=== PATIENT | female | born 1940 | race Caucasian/White ===

== ENCOUNTER 2022-10-03 07:53 | Outpatient (AMB) | payer MEDICARE, SELFPAY ==
--- NOTE | 2022-10-03 07:57 | MHC.OFFVIS ---
Intake Vital Signs 10/03/22 07:59 Height 4 ft 11 in Weight 136 lb BMI 27.5 BP 110/70 Blood Pressure Location Rt brachial Position Sitting Pulse 83 Pulse Source Pulse Oximeter Pulse Oximetry (%) 97 Oxygen Delivery Method Room Air Intake Visit Reasons: NPV-Memory Impairment Intake Note: NPV for memory impairement accompanied by daughter Systems Program Manager Required: No Allergies Penicillins Allergy (Unknown, Verified 10/03/22 07:58) Unknown Medication List - Last Reconciled 10/03/22 by Padma Fonseca MD amlodipine 2.5 mg PO DAILY baclofen 10 mg PO BEDTIME loratadine 10 mg PO DAILY metoprolol succinate ER 50 mg PO DAILY HPI HPI Comments History of Present Illness Details 82y/o right handed female comes for evaluation of memory issues. she is accompanied by her daughter who helps.Her family started noticing some short term memory issues which has worsened in the past 1 month.3 weeks ago while she was doing dishes she was suddenly confused of where she was . The episode lasted 2 hrs. she also ahs trouble with names , phone numbers, repeats often, forgets conversations etc. she lives alone but her children live in the same building. she does not drive, manages her finances. No hallucinations Since her partner passed 4 years ago she has trouble falling asleep. she has snoring and has excessive daytime sleepiness. she has mild depression and anxiety. [facility] Medical History (Updated 10/03/22 @ 08:35 by Padma Fonseca MD) Cervical spondylosis Cholelithiases Cognitive disorder Depression GERD (gastroesophageal reflux disease) HTN (hypertension) Hyperlipidemia Hypersomnia Rheumatoid arthritis Snoring Surgical History H/O thyroidectomy Family History Mother Arthritis Macular infarction Father Arthritis Family/Other No problems noted. Family/Other No problems noted. Social History Alcohol intake: current Patient Tobacco Use Status: Former Tobacco user Review of Systems Const Reports lethargy and Reports snoring Resp Reports snoring Musc Reports arthralgias Neuro Reports memory loss Psych Reports depression and Reports memory loss Physical Exam Vital Signs: Last Vital Signs Pulse 83 10/03/22 07:59 BP 110/70 10/03/22 07:59 Pulse Ox 97 10/03/22 07:59 Oxygen Delivery Method Room Air 10/03/22 07:59 BMI result Body Mass Index 27.5 Const General: cooperative, healthy appearing, comfortable and no acute distress Nutritional Appearance: average body habitus Orientation/consciousness: oriented to person and oriented to place Neuro General: oriented to person, oriented to place, tone normal, moves all extremities and no focal motor deficits Cranial nerves: Yes Facial sensation intact/muscles of mastication intact, Yes Bilaterally intact EOM present, Yes Nystagmus not present, Yes Normal facial strength present, Yes Midline tongue present, Yes Symmetric palate elevation present and Yes Ability to bilaterally elevate shoulders present Cognition (Neuro): abnormal cognition Gait exam (Neuro): Normal gait present Motor exam (neuro): 5/5 motor strength present throughout Deep tendon reflexes (DTR's): Right triceps reflex intensity grade: 1+, Left triceps reflex intensity grade: 1+, Rt Biceps (C5, C6): 1+, Left biceps reflex intensity grade: 1+, Right brachioradialis reflex intensity grade: 1+, Left brachioradialis reflex intensity grade: 1+, Right patellar reflex intensity grade: 1+ and Left patellar reflex intensity grade: 1+ Coordination: [id number] test normal Psych Appearance: grossly normal Orientation What is the (year) (season) (date) (day) (month)?: year, day and month Where are we (state) (county) (town or city) (hospital) (floor)?: state, county, town or city, hospital/clinic and floor Registration Name of 3 unrelated objects clearly and slowly, then ask patient to repeat all 3 of them. (1st repeat determines score. Make sure they can repeat all three): object 1, object 2 and object 3 Attention & Calculation (CHOOSE ONE) Spell WORLD backwards (DLROW): 4 letters Language Show patient a wristwatch & ask what it is. Repeat for pencil.: watch and pencil Ask the patient to repeat the phrase 'No ifs, ands, or buts' after you.: correct Ask the patient to 'take a piece of paper with their right hand' 'fold paper in half' 'place paper on floor': take paper in right hand, fold paper in half and place paper on floor Print the sentence 'CLOSE YOUR EYES' on a piece. If patient actually closes eyes then score.: followed written direction Score Score: 22 Assessment & Plan Assessment & Plan (1) Cognitive disorder: Comment: mild dementia Code(s): F09 - Unspecified mental disorder due to known physiological condition (2) Snoring: Code(s): R06.83 - Snoring Plan I will evaluate her with MRI brain , Labs - Vit B 12 CBC cMP ESR etc SLeep study to r/o sleep apnea will consider starting her on memantine next visit. Orders: Orders Vitamin B12 and Folate Today F09 - Unspecified mental disorder due to known physiological condition Comprehensive Met. Panel Today F09 - Unspecified mental disorder due to known physiological condition TSH reflex Free T4 Today F09 - Unspecified mental disorder due to known physiological condition Vitamin D 25-OH (D2 and D3) Today F09 - Unspecified mental disorder due to known physiological condition Complete Blood Count Auto Diff Today F09 - Unspecified mental disorder due to known physiological condition Erythrocyte Sedimentation Rate Today F09 - Unspecified mental disorder due to known physiological condition MR head/brain wo con Today F09 - Unspecified mental disorder due to known physiological condition, R41.3 - Other amnesia RT PSG in-lab sleep study Today F09 - Unspecified mental disorder due to known physiological condition, G47.10 - Hypersomnia, unspecified, R06.83 - Snoring Coding Level of Care Code New Pt Level 4 (05489) Diagnoses Cognitive disorder F09 Snoring R06.83
[2022-10-03 07:59] VITALS: BP 110/70; PULSE 83; O2SAT 97; BMI 27.5
== END 2022-10-03 08:37 | disposition home or self-care (01) ==
PROVIDERS: PCP Internal Medicine; Visit Provider Psychiatry & Neurology Neurology
DX: R41.89 Other symptoms and signs involving cognitive functions and awareness (principal); R06.83 Snoring
CPT/HCPCS: 99204

== ENCOUNTER → 2022-10-03 07:53 | Outpatient (BNVA) | payer MEDICARE, SELFPAY | PROVIDERS: PCP Internal Medicine; Visit Provider Psychiatry & Neurology Neurology | DX: R41.3 Other amnesia (principal); F09 Unspecified mental disorder due to known physiological condition; G47.10 Hypersomnia, unspecified; R06.83 Snoring | CPT/HCPCS: 99202 ==

== ENCOUNTER → 2022-10-24 20:30 | Outpatient (REF) | payer MEDICARE, SELFPAY | LOC: HO.SL 20:30 | PROVIDERS: PCP Internal Medicine; Visit Provider Psychiatry & Neurology Neurology | DX: Z13.89 Encounter for screening for other disorder (principal) ==

== ENCOUNTER 2022-11-08 07:30 | Outpatient (AMB) | payer MEDICARE, SELFPAY ==
--- NOTE | 2022-11-08 07:41 | A.OFFVIS_ITS ---
Intake Vital Signs 11/08/22 07:42 Height 4 ft 11 in Weight 136 lb BMI 27.5 BP 120/78 Blood Pressure Location Rt brachial Position Sitting Pulse 58 Pulse Source Pulse Oximeter Pulse Oximetry (%) 97 Oxygen Delivery Method Room Air Intake Visit Reasons: 3m follow up Memory Impairment Intake Note: Pt presents as a 3 month f/u for memory impairment Earth Science Teacher Required: No Allergies Penicillins Allergy (Unknown, Verified 11/08/22 07:45) Unknown Medication List - Last Reconciled 11/08/22 by Padma Fonseca MD amlodipine 2.5 mg PO DAILY cholecalciferol (vitamin D3) 50 mcg PO DAILY 30 days loratadine 10 mg PO DAILY metoprolol succinate ER 50 mg PO DAILY HPI HPI Comments History of Present Illness Details 82y/o right handed female comes for follow up of memory issues. she is accompanied by her daughter who helps. SHe is scheduled for an MRI brain in 2 weeks . Her labs were normal except for VIt D which was low at 18. Her sleep study was c/w severe sleep apnea AHI 41/hr , REM AHI 69/hr and oxygen andressa was75%. she is scheduled for CPAP titration study Her family started noticing some short term memory issues which has worsened in the past 2 month.7 weeks ago while she was doing dishes she was suddenly confused of where she was . The episode lasted 2 hrs. she also gonzales trouble with names , phone numbers, repeats often, forgets conversations etc. she lives alone but her children live in the same building. she does not drive, manages her finances. [facility] Medical History Cervical spondylosis Cholelithiases Cognitive disorder Depression GERD (gastroesophageal reflux disease) HTN (hypertension) Hyperlipidemia Hypersomnia Rheumatoid arthritis Snoring Surgical History H/O thyroidectomy Family History Mother Arthritis Macular infarction Father Arthritis Family/Other No problems noted. Family/Other No problems noted. Social History Alcohol intake: current Alcohol intake frequency: holidays/special occasions only Patient Tobacco Use Status: Former Tobacco user Physical Exam Vital Signs: Last Vital Signs Pulse 58 08/22/23 07:42 BP 120/78 11/08/22 07:42 Pulse Ox 97 11/08/22 07:42 Oxygen Delivery Method Room Air 11/08/22 07:42 BMI result Body Mass Index 27.5 Const General: cooperative, healthy appearing, comfortable and no acute distress Nutritional Appearance: average body habitus Orientation/consciousness: oriented to person and oriented to place Neuro General: oriented to person, oriented to place, tone normal, moves all extremities and no focal motor deficits Cranial nerves: Yes Facial sensation intact/muscles of mastication intact, Yes Bilaterally intact EOM present, Yes Nystagmus not present, Yes Normal facial strength present, Yes Midline tongue present, Yes Symmetric palate elevation present and Yes Ability to bilaterally elevate shoulders present Cognition (Neuro): abnormal cognition Gait exam (Neuro): Normal gait present Motor exam (neuro): 5/5 motor strength present throughout Coordination: [id number]-[id number] test normal Psych Appearance: grossly normal Assessment & Plan Assessment & Plan (1) Cognitive disorder: Comment: mild dementia Code(s): F09 - Unspecified mental disorder due to known physiological condition (2) MICH (obstructive sleep apnea): Code(s): G47.33 - Obstructive sleep apnea (adult) (pediatric) Plan CPAP titration study MRI brain- scheduled I will trial her on namenda XR 7mg qd Vit D supplementation Medications: New memantine 7 mg PO DAILY 30 ea 0RF Coding Level of Care Code Est Pt Level 4 (34373) Diagnoses Cognitive disorder F09 MICH (obstructive sleep apnea) G47.33
[2022-11-08 07:42] VITALS: BP 120/78; PULSE 58; O2SAT 97; BMI 27.5
== END 2022-11-08 08:01 | disposition home or self-care (01) ==
PROVIDERS: PCP Internal Medicine; Visit Provider Psychiatry & Neurology Neurology
DX: F03.A0 Unspecified dementia, mild, without behavioral disturbance, psychotic disturbance, mood disturbance, and anxiety (principal); R41.89 Other symptoms and signs involving cognitive functions and awareness; G47.33 Obstructive sleep apnea (adult) (pediatric)
CPT/HCPCS: 99214

== ENCOUNTER → 2022-11-08 07:30 | Outpatient (BNVA) | payer MEDICARE, SELFPAY | PROVIDERS: PCP Internal Medicine; Visit Provider Psychiatry & Neurology Neurology | DX: F09 Unspecified mental disorder due to known physiological condition (principal); G47.33 Obstructive sleep apnea (adult) (pediatric) | CPT/HCPCS: 99212 ==

== ENCOUNTER 2022-11-15 10:58 | Outpatient (REF) | payer MEDICARE, SELFPAY ==
--- NOTE | ~2022-11-15 | MR_ITS ---
EXAMINATION: MRI OF THE BRAIN WITHOUT CONTRAST CLINICAL INFORMATION: Memory deficits and cognitive disorder. COMPARISON: There are no prior studies available for comparison at time of dictation. TECHNIQUE: MRI of the brain was obtained using routine sequences without contrast. FINDINGS: No diffusion abnormalities are identified to suggest an acute or subacute infarct. No mass effect or midline shift is seen. There is commensurate prominence of the ventricles and sulci consistent with diffuse volume loss. There are scattered foci of hyperintense T2 and FLAIR signal in the periventricular and subcortical white matter, and in the raza which are most consistent with chronic microvascular ischemic changes. No extra-axial fluid collections are seen. The cerebellum appears normal. No pathologic magnetic susceptibility artifact is identified on the gradient refocused acquisition. The craniovertebral junction, marrow signal, and midline structures are normal. The major intracranial flow-voids at the level of the [place] of [place] are preserved. The dural venous sinus flow-voids are maintained. 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 The mastoid air cells and paranasal sinuses are well-aerated. MR/MR head/brain wo con IMPRESSION: 1. There are no acute bleeds or territorial infarcts. No masses are demonstrated. 2. There are chronic microvascular ischemic changes and there is diffuse volume loss.
== END 2022-11-15 10:59 | disposition home or self-care (01) ==
LOC: HO.MRI 10:58
PROVIDERS: Visit Provider Psychiatry & Neurology Neurology
DX: R41.3 Other amnesia (principal); F09 Unspecified mental disorder due to known physiological condition
CPT/HCPCS: 70551

== ENCOUNTER → 2022-12-11 22:30 | Outpatient (REF) | payer MEDICARE, SELFPAY | LOC: HO.SL 22:30 | PROVIDERS: PCP Internal Medicine; Visit Provider Nurse Practitioner Family | DX: G47.33 Obstructive sleep apnea (adult) (pediatric) (principal) | CPT/HCPCS: 95811 ==

== ENCOUNTER → 2022-12-11 22:41 | Outpatient (BNV) | payer MEDICARE, SELFPAY | PROVIDERS: PCP Internal Medicine; Visit Provider Psychiatry & Neurology Neurology | DX: G47.33 Obstructive sleep apnea (adult) (pediatric) (principal) | CPT/HCPCS: 95811 ==

== ENCOUNTER 2023-01-16 07:39 | Outpatient (AMB) | payer MEDICARE, SELFPAY ==
--- NOTE | 2023-01-16 07:51 | MHC.OFFVIS ---
Intake Vital Signs 01/16/23 07:53 Weight 146 lb 4 oz BP 120/80 Blood Pressure Location Rt brachial Position Sitting Pulse 68 Pulse Source Pulse Oximeter Pulse Oximetry (%) 96 Oxygen Delivery Method Room Air Intake Visit Reasons: 2m follow up Memory Impairment-CONFIRMED Intake Note: F/U Memory impairment Order Processing Clerk Required: No Allergies Penicillins Allergy (Unknown, Verified 01/16/23 07:52) Unknown Medication List - Last Reconciled 01/16/23 by Padma Fonseca MD amlodipine 2.5 mg PO DAILY cholecalciferol (vitamin D3) 50 mcg PO DAILY 30 days loratadine 10 mg PO DAILY memantine 21 mg PO DAILY metoprolol succinate ER 50 mg PO DAILY HPI HPI Comments History of Present Illness Details 82y/o right handed female comes for follow up of memory issues. she is accompanied by her daughter who helps.she is doing better,sleeping better. No recent episodes of confusion,she is more compliant with medications.she is etaing better. still ahs some short term memory issues Her labs were normal except for VIt D which was low at 18. Her sleep study was c/w severe sleep apnea AHI 41/hr , REM AHI 69/hr and oxygen andressa was75%. she is still waiting for CPAP. she lives alone but her children live in the same building. she does not drive, manages her finances. MRI brain - mild white matter changes [facility] Medical History Hypersomnia Cognitive disorder Snoring HTN (hypertension) Cervical spondylosis Hyperlipidemia Rheumatoid arthritis Cholelithiases GERD (gastroesophageal reflux disease) Depression Surgical History H/O thyroidectomy Family History Mother Arthritis Macular infarction Father Arthritis Family/Other No problems noted. Family/Other No problems noted. Social History Alcohol intake: current Alcohol intake frequency: holidays/special occasions only Patient Tobacco Use Status: Former Tobacco user Physical Exam Vital Signs: Last Vital Signs Pulse 68 01/16/23 07:53 BP 120/80 01/16/23 07:53 Pulse Ox 96 01/16/23 07:53 Oxygen Delivery Method Room Air 01/16/23 07:53 Const General: cooperative, healthy appearing, comfortable and no acute distress Nutritional Appearance: average body habitus Orientation/consciousness: oriented to person and oriented to place Neuro General: oriented to person, oriented to place, tone normal, moves all extremities and no focal motor deficits Cranial nerves: Yes Facial sensation intact/muscles of mastication intact, Yes Bilaterally intact EOM present, Yes Nystagmus not present, Yes Normal facial strength present, Yes Midline tongue present, Yes Symmetric palate elevation present and Yes Ability to bilaterally elevate shoulders present Cognition (Neuro): abnormal cognition Gait exam (Neuro): Normal gait present Motor exam (neuro): 5/5 motor strength present throughout Coordination: [id number]-iw-ghey test normal Psych Appearance: grossly normal Assessment & Plan Assessment & Plan (1) Cognitive disorder: Comment: mild dementia Code(s): F09 - Unspecified mental disorder due to known physiological condition (2) MICH (obstructive sleep apnea): Code(s): G47.33 - Obstructive sleep apnea (adult) (pediatric) Plan CPAP -waiting for call from [facility] MRI brain- reviewed Increase namenda XR 21mg qd Vit D supplementation Medications: Changed From memantine 14 mg PO DAILY 30 ea 0RF To memantine 21 mg PO DAILY 30 ea 0RF Coding Level of Care Code Est Pt Level 4 (66598) Diagnoses Cognitive disorder F09 MICH (obstructive sleep apnea) G47.33
[2023-01-16 07:53] VITALS: BP 120/80; PULSE 68; O2SAT 96
== END 2023-01-16 08:10 | disposition home or self-care (01) ==
PROVIDERS: PCP Internal Medicine; Visit Provider Psychiatry & Neurology Neurology
DX: F03.A0 Unspecified dementia, mild, without behavioral disturbance, psychotic disturbance, mood disturbance, and anxiety (principal); G47.33 Obstructive sleep apnea (adult) (pediatric)
CPT/HCPCS: 99214

== ENCOUNTER → 2023-01-16 07:39 | Outpatient (BNVA) | payer MEDICARE, SELFPAY | PROVIDERS: PCP Internal Medicine; Visit Provider Psychiatry & Neurology Neurology | DX: F09 Unspecified mental disorder due to known physiological condition (principal); G47.33 Obstructive sleep apnea (adult) (pediatric) | CPT/HCPCS: 99212 ==

== ENCOUNTER 2023-07-17 08:04 | Outpatient (AMB) | payer MEDICARE, SELFPAY ==
--- NOTE | 2023-07-17 08:05 | MHC.OFFVIS ---
Vital Signs 07/17/23 08:18 Height 4 ft 11 in Weight 149 lb 2 oz BMI 30.1 BP 115/70 Blood Pressure Location Lt brachial Position Sitting Pulse 68 Pulse Source Pulse Oximeter Pulse Oximetry (%) 96 Oxygen Delivery Method Room Air Intake Visit Reasons: 6 mnts f/u w/Kelly per MD George Rios w/address Intake Note: Patient presents 6 months f/u. anxiety and insomnia at night causes not to be able to use CPAP machine. Pt would like to take Melatonin. Allergies Penicillins Allergy (Unknown, Verified 07/17/23 08:17) Unknown HPI Comments Details: 83 y/o female patient presents for follow up of memory loss and MICH. Pt's memory is stable, has some short term memory loss. No recent episodes of confusion, she is compliant with medications. Pt is on memantine 28 mg daily. Her sleep study was c/w severe sleep apnea AHI 41/hr , REM AHI 69/hr and oxygen andressa was75%. She started CPAP at 6cmH2O, but non compliant. She has anxiety, and insomnia, can't sleep with CPAP. She takes a nap during daytime, stays up until 2-3 am. Having coffee and ice cream late night. She lives alone but her children live in the same building. She does not drive, manages her finances. MRI brain - mild white matter changes. [facility] Medical History Hypersomnia Cognitive disorder Snoring HTN (hypertension) Cervical spondylosis Hyperlipidemia Rheumatoid arthritis Cholelithiases GERD (gastroesophageal reflux disease) Depression Surgical History H/O thyroidectomy Family History Mother Arthritis Macular infarction Father Arthritis Family/Other No problems noted. Family/Other No problems noted. Social History Alcohol intake: current Alcohol intake frequency: holidays/special occasions only Patient Tobacco Use Status: Former Tobacco user Review of Systems Const All systems reviewed & are unremarkable except as noted in HPI and below Physical Exam Vital Signs: Last Vital Signs Pulse 68 07/17/23 08:18 BP 115/70 07/17/23 08:18 Pulse Ox 96 07/17/23 08:18 Oxygen Delivery Method Room Air 07/17/23 08:18 BMI result Body Mass Index 30.1 Const General: cooperative, healthy appearing, comfortable and no acute distress Nutritional Appearance: average body habitus Orientation/consciousness: oriented to person and oriented to place Neuro General: oriented to person, oriented to place, tone normal, moves all extremities and no focal motor deficits Cranial nerves: Yes Facial sensation intact/muscles of mastication intact, Yes Bilaterally intact EOM present, Yes Nystagmus not present, Yes Normal facial strength present, Yes Midline tongue present, Yes Symmetric palate elevation present and Yes Ability to bilaterally elevate shoulders present Cognition (Neuro): abnormal cognition Gait exam (Neuro): Normal gait present Motor exam (neuro): 5/5 motor strength present throughout Coordination: [id number] test normal Psych Appearance: grossly normal Assessment & Plan Assessment & Plan (1) Cognitive disorder: Comment: mild dementia Code(s): F09 - Unspecified mental disorder due to known physiological condition Category: Medical (2) MICH (obstructive sleep apnea): Code(s): G47.33 - Obstructive sleep apnea (adult) (pediatric) Category: Medical Plan Continue to take namenda XR 28mg qd. Advised patient to try melatonin 3-9 mg qHS along with magneisum 400 mg. Continue to use CPAP at 6cmH2O. Advised patient to try CPAP while she resting and watching TV to get used to it. Stressed compliance, use CPAP nightly and more than 4 hrs. Increase physical activities, limit daytime nap to sleep better at night. Medications: New magnesium oxide 400 mg PO DAILY 30 days 30 tabs 6RF melatonin 1-3 tabs orally bedtime PRN; 90 days 90 tabs 1RF sleep Coding Level of Care Code Est Pt Level 3 (76540) Diagnoses Cognitive disorder F09 MICH (obstructive sleep apnea) G47.33
[2023-07-17 08:18] VITALS: BP 115/70; PULSE 68; O2SAT 96; BMI 30.1
== END 2023-07-17 08:34 | disposition home or self-care (01) ==
PROVIDERS: PCP Internal Medicine; Visit Provider Nurse Practitioner Family
DX: R41.89 Other symptoms and signs involving cognitive functions and awareness (principal); G47.33 Obstructive sleep apnea (adult) (pediatric)
CPT/HCPCS: 99213

== ENCOUNTER → 2023-07-17 08:04 | Outpatient (BNVA) | payer MEDICARE, SELFPAY | PROVIDERS: PCP Internal Medicine; Visit Provider Nurse Practitioner Family | DX: G47.33 Obstructive sleep apnea (adult) (pediatric) (principal); R41.3 Other amnesia; F09 Unspecified mental disorder due to known physiological condition | CPT/HCPCS: 99212 ==

== ENCOUNTER 2024-01-23 09:00 | Outpatient (AMB) | payer MEDICARE, SELFPAY ==
--- NOTE | 2024-01-23 09:04 | MHC.OFFVIS ---
Vital Signs 01/23/24 09:05 Height 4 ft 11 in Weight 137 lb BMI 27.7 BP 126/54 L Blood Pressure Location Lt brachial Position Sitting Pulse 68 Pulse Source Pulse Oximeter Pulse Oximetry (%) 97 Oxygen Delivery Method Room Air Intake Visit Reasons: 7 Month F/U Take Out Waitress Required: No Accompanied by: Daughter Allergies Penicillins Allergy (Unknown, Verified 01/23/24 09:07) Unknown HPI Comments Details: 83 year old female with severe MICH and Cognitive decline presents for a 6 mos f/u visit. She says sleep has improved as patient continues to take Z-quil at night. Her memory is foggy, daughter reminds her of tasks daily and she repeatedly asks the same questions. She is more fatigued in the morning, but improves through the day with small naps. She has GI upset with Magnesium so she discontinued it. She completes all her ADLs and supervised cooking at home. She feels claustrophobic with the use of her CPAP. She is active and walks daily with the daughters, socially active with her grandchildren. Denies nausea, vomitting, headaches, vision changes, snoring and gasping for air, restless legs, cramps. [facility] Medical History Hypersomnia Cognitive disorder Snoring HTN (hypertension) Cervical spondylosis Hyperlipidemia Rheumatoid arthritis Cholelithiases GERD (gastroesophageal reflux disease) Depression Surgical History H/O thyroidectomy Family History Mother Arthritis Macular infarction Father Arthritis Family/Other No problems noted. Family/Other No problems noted. Social History Alcohol intake: current Alcohol intake frequency: holidays/special occasions only Patient Tobacco Use Status: Former Tobacco user Review of Systems Const Reports as per HPI and Reports fatigue ENT Reports Normal hearing present Neuro Reports Normal hearing present Endo Reports fatigue Physical Exam Vital Signs: Last Vital Signs Pulse 68 01/23/24 09:05 BP 126/54 L 01/23/24 09:05 Pulse Ox 97 01/23/24 09:05 Oxygen Delivery Method Room Air 01/23/24 09:05 BMI result Body Mass Index 27.7 Const General: cooperative, comfortable and no acute distress Nutritional Appearance: average body habitus Orientation/consciousness: patient oriented x3 HEENT Head: Yes normal to inspection Face and sinus: Yes normal facial exam Eyes Pupils: Equal, round and reactive pupils present, Pupils normal by confrontation and Pupil accommodation reflex normal Neck Neck: Yes normal visual inspection and Yes full ROM Resp Effort & Inspection: normal respiratory effort and able to speak in complete sentences Neuro General: patient oriented x3 Cranial nerves: Yes CN's II-XII intact bilaterally, Yes Equal, round and reactive pupils present, Yes Normal facial strength present, Yes Midline tongue present, Yes Normal hearing present, Yes Ability to bilaterally rotate head present and Yes Ability to bilaterally elevate shoulders present Gait exam (Neuro): Normal gait present Motor exam (neuro): 5/5 motor strength present throughout Deep tendon reflexes (DTR's): Right triceps reflex intensity grade: 2+, Left triceps reflex intensity grade: 2+, Rt Biceps (C5, C6): 2+, Left biceps reflex intensity grade: 2+, Right brachioradialis reflex intensity grade: 2+, Left brachioradialis reflex intensity grade: 2+, Right patellar reflex intensity grade: 2+, Left patellar reflex intensity grade: 2+, Right ankle reflex intensity grade: 2+ and Left ankle reflex intensity grade: 2+ Coordination: [id number] test normal Romberg Test: Negative Psych Appearance: grossly normal Speech and movement: Normal speech and movement present Affect: normal affect Attitude: cooperative Insight: Good insight present (Psych) Assessment & Plan Assessment & Plan (1) MICH (obstructive sleep apnea): Code(s): G47.33 - Obstructive sleep apnea (adult) (pediatric) Category: Medical Plan: Patient has difficulty with adjustment of mask and feels claustrophobic. Discussed the importance of trying various mask types and nose pillows if necessary. May begin using for small periods at a time as oxygenation will improve cognitive abilities. (2) Hypersomnia: Code(s): G47.10 - Hypersomnia, unspecified Category: Medical Plan: Discussed compliance of CPAP daily Will Check B12, MMA and Homocysteine levels, she continues to be more fatigued during the day. (3) Cognitive disorder: Comment: mild dementia Code(s): F09 - Unspecified mental disorder due to known physiological condition Category: Medical Plan: Continue Memantine 28mg PO daily. Continue walking as exercise and social activities along with healthy lifestyle can improve mood and memory. Plan Case, plan, and documentation reviewed, edited, and discussed with Marilynn QIU by myself FRANCIS Potter. Medical decision making completed by myself, FRANCIS Potter. Orders: Orders Homocysteine 01/23/24 F09 - Unspecified mental disorder due to known physiological condition Methylmalonic Acid 01/23/24 F09 - Unspecified mental disorder due to known physiological condition Vitamin B12 and Folate 01/23/24 F09 - Unspecified mental disorder due to known physiological condition Coding Level of Care Code Est Pt Level 4 (47283) Complex EM visit Add On G2211 Diagnoses MICH (obstructive sleep apnea) G47.33 Hypersomnia G47.10 Cognitive disorder F09
[2024-01-23 09:05] VITALS: BP 126/54; PULSE 68; O2SAT 97; BMI 27.7
== END 2024-01-23 09:37 | disposition home or self-care (01) ==
LOC: HO.HSMS 09:01
PROVIDERS: PCP Internal Medicine; Visit Provider Nurse Practitioner Family
DX: G47.33 Obstructive sleep apnea (adult) (pediatric) (principal); G47.10 Hypersomnia, unspecified; R41.89 Other symptoms and signs involving cognitive functions and awareness
CPT/HCPCS: 99214; G2211

== ENCOUNTER → 2024-01-23 09:00 | Outpatient (BNVA) | payer MEDICARE, SELFPAY | PROVIDERS: PCP Internal Medicine; Visit Provider Nurse Practitioner Family | DX: G47.33 Obstructive sleep apnea (adult) (pediatric) (principal); G47.10 Hypersomnia, unspecified; F09 Unspecified mental disorder due to known physiological condition | CPT/HCPCS: 99212 ==

== ENCOUNTER 2024-07-22 08:06 | Outpatient (AMB) | payer MEDICARE, SELFPAY ==
--- NOTE | 2024-07-22 08:12 | A.OFFVIS_ITS ---
Vital Signs 07/22/24 08:13 Height 4 ft 11 in Weight 131 lb 2 oz BMI 26.5 BP 128/76 Blood Pressure Location Rt brachial Position Sitting Pulse 66 Pulse Source Pulse Oximeter Pulse Oximetry (%) 95 Oxygen Delivery Method Room Air Intake Visit Reasons: Follow up Intake Note: Patient presents follow up MICH/Cognitive. No compliance(does not use), States needs refill on memantine. Taking b-12 but not sure of dosage. High anxiety in evening 3x week looking to see if there is anything she could take. Hot Dip Plater Required: Yes Hot Dip Plater Services: Hot Dip Plater Offered & Declined Hot Dip Plater Name: daughter Accompanied by: Daughter Allergies Penicillins Allergy (Unknown, Verified 07/22/24 08:17) Unknown HPI Comments Details: 83 year old amharic speaking female with severe MICH and Cognitive decline presents for a 6 mos f/u visit. Daughter Amberly helps with history today. She is having high levels of anxiety at night 3x a week, during the day she is happy, however when everyone is going to bed and she is left alone, she gets agitated, nervous and cleans the house. She denies agression, SI, and or falls. She still declines the use of cpap due to claustrophobia, she says sleep has improved with Z-quil, she sleep through the night. Her memory is foggy, needs constant reminding of tasks, she repeatedly asks the same questions. Her mood is good through the day but declines at night. She is more fatigued in the morning, but improves through the day with small naps. She has more of an appetite, has BM daily, denies constipation, drinks 4 cups of coffee. She completes all her ADLs and supervised cooking at home. She is active goes to the [employer] with her friends, walks daily with the daughters, and socially active with her grandchildren. Denies RLS symptoms. [facility] Medical History Hypersomnia Cognitive disorder Snoring HTN (hypertension) Cervical spondylosis Hyperlipidemia Rheumatoid arthritis Cholelithiases GERD (gastroesophageal reflux disease) Depression Surgical History H/O thyroidectomy Family History Mother Arthritis Macular infarction Father Arthritis Family/Other No problems noted. Family/Other No problems noted. Social History Alcohol intake: current Alcohol intake frequency: holidays/special occasions only Patient Tobacco Use Status: Former Tobacco user Physical Exam Vital Signs: Last Vital Signs Pulse 66 07/22/24 08:13 BP 128/76 07/22/24 08:13 Pulse Ox 95 07/22/24 08:13 Oxygen Delivery Method Room Air 07/22/24 08:13 BMI result Body Mass Index 26.5 Const General: cooperative, comfortable and no acute distress Orientation/consciousness: patient oriented x3 Eyes Pupils: Equal, round and reactive pupils present Resp Effort & Inspection: normal respiratory effort and able to speak in complete sentences Neuro General: patient oriented x3 and moves all extremities Cranial nerves: Yes Equal, round and reactive pupils present and Yes Ability to bilaterally rotate head present Gait exam (Neuro): Normal gait present Psych Attitude: cooperative Thought process: Normal thought process present Thought content: Normal thought content present Assessment & Plan Assessment & Plan (1) MICH (obstructive sleep apnea): Code(s): G47.33 - Obstructive sleep apnea (adult) (pediatric) Category: Medical Plan: Patient has difficulty with adjustment of mask and feels claustrophobic. Discussed the importance of trying various mask types and nose pillows if necessary. May begin using for small periods at a time as oxygenation will improve cognitive abilities. (2) Hypersomnia: Code(s): G47.10 - Hypersomnia, unspecified Category: Medical Plan: Discussed compliance of CPAP daily. Will Check CBC, CMP, TSH, Vit D, B12 Folate, MMA and Homocysteine levels, she continues to be more fatigued during the day. (3) Cognitive disorder: Comment: mild dementia Code(s): F09 - Unspecified mental disorder due to known physiological condition Category: Medical Plan: Continue Memantine 28mg PO daily. Continue walking as exercise and social activities along with healthy lifestyle can improve mood and memory. (4) Fatigue: Code(s): R53.83 - Other fatigue Category: Medical Qualifiers: Fatigue type: chronic, unspecified Qualified Code(s): R53.82 - Chronic fatigue, unspecified Plan: Will check labs to r/o deficiencies. (5) Anxiety: Code(s): F41.9 - Anxiety disorder, unspecified Category: Medical Plan: Lorazepam 0.5mg as needed for periods of difficulty with sleep. Remeron 7.5mg PO daily at bedtime to help with sleep. Orders: Orders Comprehensive Met. Panel Today R53.83 - Other fatigue Ferritin Today R53.83 - Other fatigue TSH reflex Free T4 Today R53.83 - Other fatigue Complete Blood Count no Diff Today R53.83 - Other fatigue Vitamin D 25-OH Total Today R53.83 - Other fatigue Medications: New lorazepam Take one 0.5mg PO at bedtime as needed for high levels of anxiety. 0.5 mg PO BEDTIME PRN 10 tabs 0RF anxiety MDD 0.5mg F41.9 - Anxiety disorder, unspecified mirtazapine (Remeron) May cut the tablet in 1/2 for a total dose of 7.5mg PO daily at bedtime, to initiate sleep. 15 mg PO BEDTIME 30 days 30 tabs 0RF sleep difficulties MDD 7.5mg F41.9 - Anxiety disorder, unspecified Patient Instructions: lorazepam 0.5mg PO-anxiety as needed only. Remeron 7.5mg PO daily to help with sleep. Sleep Hygiene provided: set a scheduled bedtime and wake time to help regulate the circadian rhythm and balance the release of pituitary hormones. Sleep in a dark room, temperatures below 68 degrees, and no devices n bed. Limit caffeinated products 6 hours prior to bed, and limit fluids 2-4 hours prior to bed. Gentle night yoga, diffusing essential oils, and playing soft music can be relaxing. Compliance is emphasized today. Coding Level of Care Code Est Pt Level 4 (40606) Diagnoses MICH (obstructive sleep apnea) G47.33 Hypersomnia G47.10 Cognitive disorder F09 Chronic fatigue R53.82 Fatigue type: chronic, unspecified Anxiety F41.9 Time Spent (min) 30 Comment Improving
[2024-07-22 08:13] VITALS: BP 128/76; PULSE 66; O2SAT 95; BMI 26.5
--- OUTSIDE RECORDS SUMMARY | 2024-07-22 08:13 | XMS_ITS | Clinical Summary ---
Author Organization [facility] Address [address] [place] [address] Care Team Providers Care Hardware Designer Name Role Phone Unavailable Primary Care Provider Unavailabl e Source Comments PLEASE NOTE, if this patient is a minor, it may be UNLAWFUL to discuss sensitive information that is contained in these records (such as FAMILY PLANNING, MENTAL HEALTH or SUBSTANCE ABUSE) with the minor patient's parent or other person without the patient's specific authorization.[facility] Immunizations Immunization Administration Dates Next Due Moderna COVID-19 Vaccine, re d cap blue label, 12+ Primary Series 04/09/2021,07/20/2020,06/22/2020 Social History Tobacco Use Types Packs/Day Years Used Date Smoking Tobacco: Never Assessed Social Connections Answer Date Recorded Social Connections and Isolation 0 06/22/2020 Financial Resource Strain Answer Date R ecorded Financial Resource Strain 0 2020 Stress Answer Date Recorded Stress 0 06/22/2020 Physical Activity Answer Date Recorded Physical Activity 0 06/22/2020 Food Insecurity Answer Date Recorded Food 0 06/22/2020 Transportation Needs Answer Date Record ed Transportation 0 06/22/2020 Housing Stability Answer Date Recorded Housing 0 06/22/2020 Safety and Environment Answer Date Yogi rded Safety 0 06/22/2020 Utilities Answer Date Recorded Utilities 0 06/22/2020 Employment Answer Date Recorded Employment 0 06/22/2020 Comments Unknown Sex and Gender Information Value Date Recorded Sex Assigned at Not on file Legal Sex Female 12:33 PM PDT Gender Identity Not on file Sexual Orientation Not on file Plan of Treatment Health Maintenance Due Date Last Done Comments Tobacco Screening 1940 Advanced Care Planning 1940 Hypertension Screening (#1) 1957 Medicare Annual Wellness Visit 1957 Imm-DTaP/Tdap/Td (1 - Tdap) 1958 Imm-Zoster, Recombinant (1 of 2) 1989 Bone Density Screening 01/27/2004 Falls Prevention 01/27/2004 Imm-Pneumococcal 65+ (2 of 2 - PPSV23) 06/17/2020 06/18/2019 [id number] (4 - season) 2023 04/09/2021, 07/20/2020, 06/22/2020 Imm-Influenza (#1) 2023 03/23/2021, 1 04/03/2017, 01/16/2015, Additional history exists Alcohol and Drug Screen 03/20/2024 Depression Annual Screen 03/20/2024 [place] - [place]
--- OUTSIDE RECORDS SUMMARY | 2024-07-22 08:13 | XMS_ITS | Clinical Summary ---
Author Organization [facility] [address] [facility] Address [address] [place] [id number] Phone Care Team Providers Care Manager Automotive Name Role Phone Jhon Nuno MD Primary Care Provider [phone] Allergies Active Allergy Reactions Criticality Noted Date Comments Penicillins 01/12/2010 Other Reaction(s): OTHER Medications econazole nitrate 1 % cream APPLY CREAM TOPICALLY TO AFFECTED AREA ONCE DAILY FOR 14 DAYS 4 Active memantine (NAMENDA XR) 28 mg extended release capsule Take 28 mg by mouth daily. Active omeprazole (PriLOSEC) [address] capsule Take 1 capsule (20 mg total) by mouth 1 (one) time each day. 4 Active loratadine (CLARITIN) 10 mg tablet Take 1 tablet by mouth daily for 360 days. 2 Active alendronate (FOSAMAX) 70 mg tablet Take 1 Tablet by mouth every 7 days. Sitting up, with a large glass of water 3 Active medical supply, miscellaneous (MISCELLANEOUS MEDICAL SUPPLY MISC) by Does not apply route. Active amLODIPine (NORVASC) 2.5 mg tablet Take 1 tablet (2.5 mg total) by mouth 1 (one) time each day. 90 tablet 1 5 Active atorvastatin (LIPITOR) 20 mg tabletIndications: Hyperlipidemia, unspecified hyperlipidemia type Take 1 tablet (20 mg total) by mouth 1 (one) time each day. 90 each 1 5 Active metoprolol succinate (TOPROL-XL) 50 mg 24 hr tabletIndications: Primary hypertension Take 1 tablet (50 mg total) by mouth 1 (one) time each day. 90 tablet 1 5 Active Active Problems Problem Noted Date Diagnosed Date Cholelithiasis 01/31/2024 Elevated rheumatoid factor 01/31/2024 Overview (01/31/2024): no synovitis or liver disease Prediabetes 05/24/2023 Overview (01/31/2024): A1c 5.9% in hospital. Alzheimer's dementia without behavioral disturbance, psychotic disturbance, mood disturbance, or anxiety ([facility] V24, [facility] V28) 11/29/2022 Osteoporosis 11/24/2021 Overview (01/31/2024): 10/2021: -2.5 T score spine -3.2 hip Primary osteoarthritis 11/24/2021 Gastroesophageal reflux disease without esophagi tis 04/12/2018 Mild episode of recurrent ma diana depressive disorder ([facility] V24) 04/12/2018 Hyperlipidemia 10/31/2017 Hand numbness 03/10/2010 Myofascial pain 03/10/2010 Neck pain 03/10/2010 Cervical radiculitis 01/12/2010 HTN (hypertension) 01/12/2010 Encounters Date Type Department Care Team Description 05/31/2024 2:00 PM EDT [facility] [address] [place] [address] Jeff Stevens NP Primary hypertension (Primary Dx); Hyperlipidemia, unspecified hyperlipidemia type; Osteoporosis, unspecified osteoporosis type, unspecified pathological fracture presence; Encounter for vitamin deficiency screening; Prediabetes; Encounter for screening mammogram for malignant neoplasm of breast from Last 3 Months Immunizations Name Administration Dates Next Due Influenza Quadravalent, MDCK , 0.5ml, preservative free (Flucelvax) 6mo and older 02/01/2018 Influenza trivalent, 0.5mL (Fluad) 65yo and olde r 11/29/2022,03/23/2021 Influenza trivalent, 0.5mL, preservative free (Fluarix; FluLaval; Fluzone) ages 6mo and older (Afluria) 3 years and older 01/16/2015 Moderna SARS-CoV-2 COVID-19, mRNA, LNP-S, preservative free 04/09/2021 Pneumococcal conjugate 13 va lent (Prevnar 13, PCV13) 2mo and older 06/18/2019 Pneumococcal polysaccharide 23 valent (Pneumovax 23) 2yo and older 01/24/2022 Td Tetanus diptheria (Tdvax) 7yo and older 11/29 Surgical History Surgery Date Site/Laterality Comments THYROIDECTOMY PROCEDURE: HISTORICAL TOTAL THYROIDECTOMY Medical History Medical History Date Comments HTN (hypertension) 01/12/2010 DX:HTN (hyper tension) Cervical radiculitis 01/12/2010 DX:Cervical radiculitis Elevated rheumatoid factor DX:El evated rheumatoid factor; COMMENT: no synovitis or liver disease Cholelithiasis DX:Cholelithiasi s Osteoporosis 11/24/2021 DX:Osteoporosis; COMMENT: 10/2021: -2.5 T score spine -3.2 hip Alzheimer's dementia without behavioral disturbance, psychotic disturbance, mood disturbance, or anxiety (CMS/HCC V24, CMS/HCC V28) 11/29/2022 DX:Alzheimer's dementia with out behavioral disturbance, psychotic disturbance, mood disturbance, or anxiety ([facility]) Family History Medical History Relation Name Comments Prostate cancer Brother 1 Arthritis Father Arthritis Mother Heart attack Mother Breast cancer Sister Colon cancer Neg Hx Ovarian cancer Neg Hx Uterine cancer Neg Hx Relation Name Status Comments Brother 1 Alive Brother 2 Alive Brother 3 Father Mother Sister Social History Tobacco Use Types Packs/Day Years Used Date Smoking Tobacco: Former Smokeless Tobacco: Never Tobacco Cessation:Counseling Given: Not Answered Alcohol Use Standard Drinks/Week Comments Yes 0 (1 standard drink = 0.6 oz pur e alcohol) Comments No Sex and Gender Information Value Date Recorded Sex Assigned at Not on file Legal Sex Female 1:58 PM EST Gender Identity Not on file Sexual Orientation Not on file Obstetrics History Last Filed Vital Signs Vital Sign Reading Time Taken Comments Blood Pressure 135/69 05/31/2024 2:19 PM EDT aut o Pulse 75 05/31/2024 2:19 PM EDT Temperature - - Respiratory Rate - - Oxygen Saturation - - Inhaled Oxygen Concentration - - Weight 61.7 kg (136 lb) 05/31/2024 2:19 PM EDT Height 154.9 cm (5' 1 ) 05/31/2024 2:19 PM EDT Body Mass Index 25.7 05/31/2024 2:19 PM EDT Plan of Treatment Health Maintenance Due Date Last Done Comments Zoster Vaccines (1 of 2) 1989 RSV Immunization Adult Patients (1 - 1-dose 75+ series) 2014 Depression Screening 02/16/2022 Falls Risk Assessment 02/16/2022 Social Influencers of Health Screening 02/16/2022 COVID-19 Vaccine ( season) 2023 04/09/2021, 07/20/2020, 06/22/2020 Medicare Annual Wellness Visit 11/30/2023 11/29/2022 Hypertension/CHF/CAD Annual BMP Blood Test 12/14/2023 12/13/2022 Influenza Vaccine (Season Ended) 2024 11/29/2022, 03/23/2021, 02/01/2018, Additional history exists Cholesterol Screening (Lipid Panel) 12/14/2027 12/13/2022, 12/13/2022 Osteoporosis Screening (Bone Density Screening) 10/27/2031 10/26/2021 DTaP,Tdap,and Td Vaccines (2 - Td or Tdap) 11/29/2032 11/29/2022 Pneumococcal Vaccine: 50+ Years Completed 01/24/2022, 06/18/2019, 03/17/2014 HIB Vaccines Aged Out No longer eligi ble based on patient's age to complete this topic HPV Vaccines Aged Out No longer eligi ble based on patient's age to complete this topic Hepatitis A Vaccines Aged Out No long er eligible based on patient's age to complete this topic Hepatitis B Vaccines Aged Out No long er eligible based on patient's age to complete this topic IPV Vaccines Aged Out No longer eligi ble based on patient's age to complete this topic MMR Vaccines Aged Out No longer eligi ble based on patient's age to complete this topic Meningococcal ACWY Vaccine Aged Out N o longer eligible based on patient's age to complete this topic Meningococcal B Vaccine Aged Out No l onger eligible based on patient's age to complete this topic RSV Immunization Patients Under 20 months Aged Out No longer eligible based on patient's age to complete this topic Varicella Vaccines Aged Out No longer eligible based on patient's age to complete this topic Procedures Procedure Name Priority Date/Time Associated Diagnosis Comments ANNUAL BMP BLOOD TEST Routine 12/13/2022 LIPID PANEL Routine 12/13/2022 DXA BONE DENSITY STUDY 1+ SITS AXIAL SKEL Routine 10/26/2021 10:36 AM EDT Encounter for screening for osteoporosis from Last 3 Months or Most Recently Relevant to Health Maintenance Results * Annual BMP Blood Test (12/13/2022) [facility] Annual BMP Blood Test abstracted Historical Provider HEALTH MAINTENANCE Final Result * (ABNORMAL) Lipid panel (12/13/2022) [facility] LDL/HDL Ratio 4 0 - 4 Triglycerides 123 0 - 150 mg/dL Cholesterol 284(A) 0 - 200 mg/dL HDL 72 >=40 mg/dL LDL Cholesterol 188(A) 0 - 100 mg/dL Blood Venous blood specimen / Unknown Historical Provider LAB BLOOD ORDERABLES Rena l Result * DXA BONE DENSITY STUDY 1+ SITS AXIAL SKEL (10/26/2021 10:36 AM EDT) Anatomical Region Laterality Modality Bone Densitometr y 10/21/2021 1:21 PM EDT Narrative 10/26/2021 12:16 PM EDT BONE DENSITY (DEXA) ? Lumbar Spine T-score is -2.5. ?? (SD relative to 20-29 y/o adult) Z-score is 0.3. ??(SD relative to age matched peers) This is considered osteoporosis by WHO criteria. Left Hip T-score is -3.2. Z-score is 0.8. This is considered osteoporosis by WHO criteria. IMPRESSION: This patient is considered to have osteoporosis by WHO criteria. The [facility] Department of Internal Medicine recommends using National Osteoporosis Foundation (NOF) guidelines in treatment decisions related to osteoporosis. NOF guidelines suggest considering treatment for postmenopausal women and men aged 50 or older presenting with the following: History of hip or vertebral fracture. T-score = -2.5 (DXA) at the femoral neck, total hip, or spine, after appropriate evaluation to exclude secondary causes. Low bone mass (T-score between -1.0 and -2.5 at the femoral neck or spine) AND a 10-year probability of a hip fracture = 3% OR a 10-year probability of a major osteoporosis-related fracture = 20% based on the [place]-adapted WHO algorithm Please note that all treatment decisions require clinical judgment and consideration of individual patient factors, including patient preferences, co-morbidities, previous drug use, risk factors not captured in the FRAX model (e.g., frailty, falls, vitamin D deficiency, increased bone turnover, interval significant decline in bone density) and possible under- or over-estimation of fracture risk by FRAX. Optional alternative screening schedule based on jeri Sherman., [facility] April 07, 2011 for patients with osteopenia (based on hip BMD T-score) is as follows: * ??advanced osteopenia (T scores -2.00 to -2.49), BMD testing every year * ??moderate osteopenia (T scores -1.50 to -1.99), BMD testing every 5 years mild osteopenia or normal BMD (T scores -1.50 and higher), BMD testing every 15 years Procedure Note Joslyn Siu MD - 03/08/2022 BONE DENSITY (DEXA) Lumbar Spine T-score is -2.5. (SD relative to 20-29 y/o adult) Z-score is 0.3. (SD relative to age matched peers) This is considered osteoporosis by WHO criteria. Left Hip T-score is -3.2. Z-score is 0.8. This is considered osteoporosis by WHO criteria. IMPRESSION: This patient is considered to have osteoporosis by WHO criteria. The [facility] Department of Internal Medicine recommendsusing National Osteoporosis Foundation (NOF) guidelines in treatment decisions related toosteoporosis. NOF guidelines suggest considering treatment for postmenopausal women and menaged 50 or older presenting with the following: History of hip or vertebral fracture. T-score = -2.5 (DXA) at the femoral neck, total hip, or spine, afterappropriate evaluation to exclude secondary causes. Low bone mass (T-score between -1.0 and -2.5 at the femoral neck or spine)AND a 10-year probability of a hip fracture = 3% OR a 10-year probability of a majorosteoporosis-related fracture = 20% based on the [place]-adapted WHO algorithm Please note that all treatment decisions require clinical judgment andconsideration of individual patient factors, including patient preferences, co- morbidities,previous drug use, risk factors not captured in the FRAX model (e.g., frailty, falls, vitaminD deficiency, increased bone turnover, interval significant decline in bone density) andpossible under- or over-estimation of fracture risk by FRAX. Optional alternative screening schedule based on dhaiana Sherman al., NEJMJanuary 2011 for patients with osteopenia (based on hip BMD T-score) is as follows: * advanced osteopenia (T scores -2.00 to -2.49), BMD testing every year * moderate osteopenia (T scores -1.50 to -1.99), BMD testing every 5years mild osteopenia or normal BMD (T scores -1.50 and higher), BMD testingevery 15 years Anastasiia Hernadez NP IMG DXA PROCEDURES Final Resul t from Last 3 Months or Most Recently Relevant to Health Maintenance Insurance [facility] [employer] MEDICARE Care Teams Manager Automotive Relationship Specialty Start Date End Date Jhon Nuno MD [address] [place] [id number] PCP - General Internal Medicine 03/22/21
== END 2024-07-22 08:59 | disposition home or self-care (01) ==
LOC: HO.HSMS 08:07
PROVIDERS: PCP Internal Medicine; Visit Provider Physician Assistant Medical
DX: G47.33 Obstructive sleep apnea (adult) (pediatric) (principal); G47.10 Hypersomnia, unspecified; R41.89 Other symptoms and signs involving cognitive functions and awareness; R53.82 Chronic fatigue, unspecified; F41.9 Anxiety disorder, unspecified
CPT/HCPCS: 99214

== ENCOUNTER → 2024-07-22 08:06 | Outpatient (BNVA) | payer MEDICARE, SELFPAY | PROVIDERS: PCP Internal Medicine; Visit Provider Physician Assistant Medical | DX: G47.33 Obstructive sleep apnea (adult) (pediatric) (principal); G47.10 Hypersomnia, unspecified; F09 Unspecified mental disorder due to known physiological condition; F41.9 Anxiety disorder, unspecified; R53.82 Chronic fatigue, unspecified | CPT/HCPCS: 99212 ==

== ENCOUNTER 2024-10-25 09:30 | Outpatient (AMB) | payer MEDICARE, SELFPAY ==
[2024-10-25 09:34] VITALS: BP 124/82; PULSE 85; O2SAT 98; BMI 25.7
--- NOTE | 2024-10-25 09:34 | A.OFFVIS_ITS ---
Vital Signs 10/25/24 09:34 Height 4 ft 11 in Weight 127 lb 4 oz BMI 25.7 BP 124/82 Blood Pressure Location Lt brachial Position Sitting Pulse 85 Pulse Source Pulse Oximeter Pulse Oximetry (%) 98 Oxygen Delivery Method Room Air Intake Visit Reasons: 3m Follow up Intake Note: Patient presents follow up MICH Medication. not on CPAP(patient refuses to use). No Labs. Foreclosure Specialist Required: Yes Foreclosure Specialist Language: [employer]: Foreclosure Specialist Offered & Declined Foreclosure Specialist Name: Daughter Information Interpreted: non-clinical & clinical Accompanied by: Daughter Allergies Penicillins Allergy (Unknown, Verified 10/25/24 09:38) Unknown HPI Comments Details: 84 year old Hungarian speaking female with severe MICH and Cognitive decline presen ts for a 6 mos f/u visit. Daughter Amberly helps with history today. HST c/w AHI 41 and oxygen is 75%, significant patient education provided re using cpap and the benefits. She didn't do well with lorazepam 0.5mg po at bedtime, had higher levels of anxiety daily. She has irritable mood and anxiety now 2x a week during bedtime and when everyone is going to bed. When left alone, she cleans the house. She is more fatigued in the morning, but improves through the day with small naps. She wants to try to use the cpap as she understands the benefits of better oxygenation and cognitive function. Denies incontinence, denies aggressive and combative behavior. Her memory is poor, needs constant reminding of tasks, redirection and she repeats the same questions. Follows instructions well. Her mood is good throughout the day but declines at night. She has more of an appetite, denies constipation, drinks 4 cups of coffee. She completes all her ADLs with support and cooks with supervision. She is active goes to the [place] with her friends, walks daily with the daughters, and socially active with her grandchildren. Denies RLS symptoms and headaches. [facility] Medical History Hypersomnia Cognitive disorder Snoring HTN (hypertension) Cervical spondylosis Hyperlipidemia Rheumatoid arthritis Cholelithiases GERD (gastroesophageal reflux disease) Depression Surgical History H/O thyroidectomy Family History Mother Arthritis Macular infarction Father Arthritis Family/Other No problems noted. Family/Other No problems noted. Social History Alcohol intake: current Alcohol intake frequency: holidays/special occasions only Patient Tobacco Use Status: Former Tobacco user Physical Exam Vital Signs: Last Vital Signs Pulse 85 10/25/24 09:34 BP 124/82 10/25/24 09:34 Pulse Ox 98 10/25/24 09:34 Oxygen Delivery Method Room Air 10/25/24 09:34 BMI result Body Mass Index 25.7 Const General: cooperative, comfortable and no acute distress Orientation/consciousness: patient oriented x3 Eyes Pupils: Equal, round and reactive pupils present Resp Effort & Inspection: normal respiratory effort and able to speak in complete sentences Neuro General: patient oriented x3 and moves all extremities Cranial nerves: Yes Equal, round and reactive pupils present, Yes Normal accommodation reflex present, Yes Normal facial strength present, Yes Midline tongue present, Yes Ability to bilaterally rotate head present and Yes Ability to bilaterally elevate shoulders present Gait exam (Neuro): Normal gait present Motor exam (neuro): Abnormal motor strength present and Abnormal muscle tone present Psych Speech and movement: Other speech and movement exam findings present (Psych) (puerto rican speaking ) Thought process: Normal thought process present Thought content: Normal thought content present Results Reviewed Results Reviewed: HST reviewed with patient today as she has severe mich. Assessment & Plan Assessment & Plan (1) MICH (obstructive sleep apnea): Code(s): G47.33 - Obstructive sleep apnea (adult) (pediatric) Category: Medical Plan: Patient has difficulty with adjustment of mask and feels claustrophobic. S ignificant patient education has been provided today with specific benefits of REM sleep stages and improved oxygenation can improve cognitive deficits. Discussed the importance of trying various mask types and nose pillows if necessary. (2) Cognitive disorder: Comment: mild dementia /chronic microvascular ischemic changes Code(s): F09 - Unspecified mental disorder due to known physiological condition Category: Medical Plan: Continue Memantine 28mg PO daily. Continue walking as exercise and social activities along with healthy lifestyle can improve mood and memory. (3) Anxiety: Code(s): F41.9 - Anxiety disorder, unspecified Category: Medical Plan: Remeron 7.5mg PO daily at bedtime to help with sleep. (4) Hypersomnia: Code(s): G47.10 - Hypersomnia, unspecified Category: Medical Plan: Discussed compliance of CPAP daily. Will Check CBC, CMP, TSH, Vit D, B12 Folate, MMA and Homocysteine levels, she continues to be more fatigued during the day. (5) Fatigue: Code(s): R53.83 - Other fatigue Category: Medical Qualifiers: Fatigue type: chronic, unspecified Qualified Code(s): R53.82 - Chronic fatigue, unspecified Plan MICH try to use cpap for 1 hour daily and while watching tv at night and gradually increase use to 2hours. Difficulties with sleep, continue remeron 7.5mg x 1/2 can be given at bedtime for . Anxiety with aggression use lorazepam 0.5mg po MRI with contrast cognitive decline, and continue memantine 28mg po daily. [facility] as patient is claustrophobic and anxious.Lorazepam 0.5mg is available for anxiety and irritable / agitation 15-20 min prior to procedure may take one pill. Continue Melatonin 5mg po daily 3 hours prior to bedtime to initate sleep. Complete Labs r/o deficiencies. Orders: Orders MR head/brain wo/w con Today F09 - Unspecified mental disorder due to known physiological condition, F41.9 - Anxiety disorder, unspecified Medications: Refilled melatonin 1-3 tabs orally bedtime PRN; 90 tabs 1RF sleep 90 days Patient Instructions: Sleep Hygiene provided: set a scheduled bedtime and wake time to help regulate the circadian rhythm and balance the release of pituitary hormones. Sleep in a dark room, temperatures below 68 degrees, and no devices n bed. Limit caffeinated products 6 hours prior to bed, and limit fluids 2-4 hours prior to bed. Gentle night yoga, diffusing essential oils, and playing soft music can be relaxing. Coding Level of Care Code Est Pt Level 4 (22513) Diagnoses MICH (obstructive sleep apnea) G47.33 Cognitive disorder F09 Anxiety F41.9 Hypersomnia G47.10 Chronic fatigue R53.82 Fatigue type: chronic, unspecified Time Spent (min) 40 Comment continue engaging in social activities
--- OUTSIDE RECORDS SUMMARY | 2024-10-25 09:35 | XMS_ITS | Clinical Summary ---
Author Organization [place] [address] [facility] Building Address [address] [place] [id number] Phone Care Team Providers Care Customer Manager Name Role Phone Jhon Nuno MD Primary Care Provider [phone] Allergies Active Allergy Reactions Criticality Noted Date [...] disturbance, psychotic disturbance, mood disturbance, or anxiety ([facility] V24, [facility] V28) 11/29/2022 Osteoporosis 11/24/2021 Overview (01/31/2024): 10/2021: -2.5 T score spine -3.2 hip Primary osteoarthritis 11/24/2021 Gastroesophageal reflux disease without esophagi tis 04/12/2018 Mild episode of recurrent ma diana depressive disorder ([facility] V24) 04/12/2018 Hyperlipidemia 10/31/2017 Hand numbness 03/10/2010 Myofascial pain 03/10/2010 Neck pain 03/10/2010 Cervical radiculitis 01/12/2010 HTN (hypertension) 01/12/2010 Immunizations Name Administration Dates Next Due Influenza [...] disturbance, psychotic disturbance, mood disturbance, or anxiety ([facility]) Family History Medical History Relation Name Comments [...] Patients (1 - 1-dose 75+ series) 2014 Falls Risk Assessment 02/16/2022 Social Influencers of Health Screening 02/16/2022 COVID-19 Vaccine ( season) 2023 04/09/2021, 07/20/2020, 06/22/2020 Medicare Annual Wellness Visit 11/30/2023 11/29/2022 Hypertension/CHF/CAD Annual BMP Blood Test 12/14/2023 12/13/2022 Depression Screening 03/20/2024 Influenza Vaccine (#1) 2024 , 03/23/2021, 02/01/2018, Additional history exists Cholesterol Screening [...] Procedure Name Priority Date/Time Associated Diagnosis Comments HM ANNUAL BMP BLOOD TEST Routine 12/13/2022 LIPID PANEL Routine 12/13/2022 DXA BONE DENSITY STUDY 1+ SITS AXIAL SKEL Routine 10/26/2021 10:36 AM EDT Encounter for screening for osteoporosis from Last 3 Months or Most Recently Relevant to Health Maintenance Results * Annual BMP Blood Test (12/13/2022) [facility] Annual BMP Blood Test abstracted Historical Provider HEALTH MAINTENANCE Final Result * (ABNORMAL) Lipid panel (12/13/2022) [facility] LDL/HDL Ratio 4 0 - 4 Triglycerides [...] 10/26/2021 12:16 PM EDT BONE DENSITY (DEXA) Lumbar Spine T-score is -2.5. (SD relative to 20-29 y/o adult) Z-score is 0.3. (SD relative to age matched peers) This is considered osteoporosis by WHO criteria. Left Hip T-score is -3.2. Z-score is 0.8. This is considered osteoporosis by WHO criteria. IMPRESSION: This patient is considered to have osteoporosis by WHO criteria. The [facility] Department of Internal Medicine recommends using National [...] alternative screening schedule based on jeri Sherman., [facility] April 07, 2011 for patients with osteopenia [...] to have osteoporosis by WHO criteria. The [facility] Department of Internal Medicine recommendsusing National Osteoporosis [...] alternative screening schedule based on jeri Sherman., NEJMJanuary 2011 for patients with osteopenia (based [...] Most Recently Relevant to Health Maintenance Insurance [facility] [employer] MEDICARE Care Teams Customer Manager Relationship Specialty Start Date End Date Jhon Nuno MD [address] [place] [phone] PCP - General Internal Medicine 03/22/21
--- OUTSIDE RECORDS SUMMARY | 2024-10-25 09:35 | XMS_ITS ---
Author Name [facility] Organization Unknown Care Team Organization Name Specialty Phone Email Start Date End Da te [facility] Jhon Nuno Primary Care 03/01/2023 11/06/2023 [facility] Anastasiia Hernadez APRN Primary Care 06/21/2022 11/06/2023 [facility] Jeff Stevens Primary Care 01/25/202211/05
--- OUTSIDE RECORDS SUMMARY | 2024-10-25 09:35 | XMS_ITS | Clinical Summary ---
Author Organization [facility] Address [address] [place] [address] Care Team Providers Care Electric Meter Repairer Helper Name Role Phone Unavailable Primary Care Provider [...] Bone Density Screening 01/27/2004 Falls Prevention 01/27/2004 Imm-RSV (adult) (1 - 1-dose 75+ series) 2014 Imm-Pneumococcal 50+ (2 of 2 - PCV20 or PCV21) 06/17/2020 06/18/2019 Nzt-DOYON-18 (4 - season) 2023 04/09/2021, 07/20/2020, 06/22/2020 Alcohol and Drug Screen 03/20/2024 Depression Annual Screen 03/20/2024 Imm-Influenza (#1) 2024 03/23/2021, 1 04/03/2017, 01/16/2015, Additional history exists Insurance [place] - [place]
== END 2024-10-25 10:22 | disposition home or self-care (01) ==
LOC: HO.HSMS 09:31
PROVIDERS: PCP Internal Medicine; Visit Provider Physician Assistant Medical
DX: G47.33 Obstructive sleep apnea (adult) (pediatric) (principal); R41.89 Other symptoms and signs involving cognitive functions and awareness; F41.9 Anxiety disorder, unspecified; G47.10 Hypersomnia, unspecified; R53.82 Chronic fatigue, unspecified
CPT/HCPCS: 99214

== ENCOUNTER → 2024-10-25 09:30 | Outpatient (BNVA) | payer MEDICARE, SELFPAY | PROVIDERS: PCP Internal Medicine; Visit Provider Physician Assistant Medical | DX: G47.33 Obstructive sleep apnea (adult) (pediatric) (principal); R53.82 Chronic fatigue, unspecified; F41.9 Anxiety disorder, unspecified; F09 Unspecified mental disorder due to known physiological condition; G47.10 Hypersomnia, unspecified | CPT/HCPCS: 99212 ==